=== PATIENT | female | born 1950 | race Caucasian/White ===

== ENCOUNTER 2018-05-03 09:59 | Emergency (ER) | payer OTHER ==
--- NOTE | 2018-05-03 10:50 | EDPHY ---
H & P Stated Complaint: right hand swollen and bruised, workmans comp Time Seen by Provider: 05/03/18 10:05 HPI/ROS: 67 yo F presents c/o injury to her right hand on a hook at work, she denies pain. She denies history of being on a blood thinner. Review of systems As per HPI General no fever no chills no weakness HEENT no eye pain no eye discharge. No eye redness, no sore throat Respiratory no cough, no shortness of breath Cardiac no chest pain, no peripheral edema GI no abdominal pain, no diarrhea, no constipation, no nausea, no vomiting no flank pain, no hematuria, no dysuria Musculoskeletal no myalgias, no joint pain Heme no easy bruising, no easy bleeding Endo no polyuria, no polydipsia Skin no rashes, no pruritus Neuro no syncope, no dizziness, no headaches Psych is no suicidal ideation, no homicidal ideation Source: Patient - Personal History Current Tetanus Diphtheria and Acellular Pertussis (TDAP): Yes - Medical/Surgical History Hx Asthma: No Hx Chronic Respiratory Disease: No Hx Diabetes: No Hx Cardiac Disease: No Hx Renal Disease: No Hx Cirrhosis: No Hx Alcoholism: No Hx HIV/AIDS: No Hx Splenectomy or Spleen Trauma: No Other PMH: arthritis, depression - Family History Significant Family History: No pertinent family hx - Social History Smoking Status: Never smoked Alcohol Use: None Drug Use: None - Physical Exam Exam: 67-year-old female, right-hand dominant -hematoma to dorsal aspect overlying 2nd metacarpal and 1st metacarpal alert and oriented no acute distress nontoxic appearance, afebrile Atraumatic normocephalic Neck no JVD No respiratory distress Vital signs stable Upper extremity Right hand hematoma over dorsal aspect of right hand overlying 1st and 2nd metacarpal with small area of abrasion, superficial laceration Bleeding controlled Full range of motion of digits, good capillary refill Constitutional: Initial Vital Signs Temperature (C) 36.8 C 05/03/18 10:07 Heart Rate 68 05/03/18 10:07 Respiratory Rate 16 05/03/18 10:07 Blood Pressure 135/69 H 05/03/18 10:07 O2 Sat (%) 96 05/03/18 10:07 O2 Delivery Mode Room Air Allergies/Adverse Reactions: codeine Allergy (Severe, Verified 05/03/18 10:12) Vomiting amoxicillin [From Augmentin] Allergy (Verified 05/03/18 10:13) Itching clavulanic acid [From Augmentin] Allergy (Verified 05/03/18 10:13) Itching Home Medications: Medication Instructions Recorded Oxybutynin 05/03/18 Sertraline HCl 05/03/18 predniSONE 05/03/18 Medical Decision Making - Diagnostics Imaging Results: Imaging Impressions Hand X-Ray 05/03/18 10:09 Impression: No evidence for acute fracture. Chronic findings as above. ED Course/Re-evaluation: Patient seen and evaluated for hand injury xray neg for fracture or fb Imp Hematoma Plan compressive dressing, sling f/u pcp or workmans comp in 2-3 days Differential Diagnosis: Differential diagnosis considered but not limited to: Hematoma, hand fracture Departure - Departure Disposition: Home, Routine, Self-Care Clinical Impression: Traumatic hematoma of right hand Condition: Good Instructions: Hematoma (ED) Additional Instructions: Follow up with your primary care doctor in 2-3 days for a recheck. wear compressive dressing to keep the bruise from expanding, but not so tight that your fingers become numb. Elevate, ice. Referrals: Patient,NotPresent [Unknown] - As per Instructions Stand Alone Forms: Work Limited Duty, Work Comp Follow Up
[2018-05-03 13:44] VITALS: BP 130/62
== END 2018-05-03 11:05 | disposition home or self-care (01) ==
LOC: CED 09:59
DX: S60.221A Contusion of right hand, initial encounter (principal); X58.XXXA Exposure to other specified factors, initial encounter; Y92.69 Other specified industrial and construction area as the place of occurrence of the external cause; Y99.0 Civilian activity done for income or pay; Y93.89 Activity, other specified
CPT/HCPCS: 73130-PO